=== PATIENT | female | born 1940 ===

== ENCOUNTER → 2020-08-29 | Outpatient (CLI) | payer MEDICARE ==
[~2020-08-29] MED LIST: LIDOCAINE 1% Multi-Dose 20 ML VIAL. INJ ONE; LIDOCAINE 1% Multi-Dose 20 ML VIAL. ONE
--- NOTE | 2020-08-29 14:37 | RAD ---
EXAM: Sonographic guided left thyroid fine needle aspiration. HISTORY: Thyroid nodule. TECHNIQUE: The risks of the procedure were discussed with the patient and written and verbal consent was obtained. A timeout was performed. Sonographic imaging of the left thyroid lobe was performed on the nodule of concern measuring 2.2 cm was identified. The skin in this location was sterilely preppe d, draped and infiltrated with 1 percent lidocaine. Multiple passes were made through the nodule conc elina using 25-gauge needles and the aspirate was submitted to the department of pathology for analysis . A sterile measures placed at the needle entry site. The patient tolerated the procedure without dif ficulty. IMPRESSION: Sonographic guided fine-needle aspiration of a 2.2 cm left thyroid nodule. An addendum to this report be submitted when pathology results are available. Electronically signed by: Rhea Samuel MD (08/29/2020 2:34 PM) [id number]
--- NOTE | 2020-08-31 13:33 | PATHOLOGY ---
Note [facility] Accession Number: [id number] TESTS RESULT FLAG UNITS REF RANGE LAB Clinician Provided Cytology Information No. of containers..01 Other (Miscellaneous) Source: LEFT THYROID NODULE DIAGNOSIS: LEFT THYROID NODULE NEGATIVE FOR MALIGNANT CELLS. BETHESDA CATEGORY II. BENIGN. CLUSTERS OF FOLLICULAR EPITHELIAL CELLS, HEMOSIDERIN-LADEN MACROPHAGES, AND RED BLOOD CELLS IDENTIFIED. THE FINDINGS ARE CONSISTENT WITH A BENIGN FOLLICULAR NODULE. THIS INTERPRETATION INCLUDES EVALUATION OF A CELL BLOCK. Signed out by: 02 Robert Mitchell MD, Pathologist NPI- [id number] Performed by: Gail Vance, Foundry Engineer ([facility]) Gross description: 30ML, CLR LGT PINK, 2FX 2A 2HE /LCS 08/30/[address] [place] [address] FLAG LEGEND: L-Low Normal,H-High Normal,LL-Alert Low,HH-Alert High <-Panic Low,>-Panic High,A-Abnormal,AA-Critical Abnormal Performed at: [facility] [address] [place] [address] Dyllan Dash MD, 02 [facility] [address] [place] [address] Robert Mitchell MD, Specimen Comment: A courtesy copy of this report has been sent to [phone] Specimen Comment: Report sent to Dr.OBERHELMA Specimen Comment: A duplicate report has been generated due to demographic updates. Performed at: 01 [facility] [address], [place], [place] [id number] MD Dyllan Dash MD Phone: [phone]
--- NOTE | 2020-09-01 06:03 | CONS ---
DATE OF CONSULTATION: 08/31/2020 NEUROLOGY CONSULTATION REFERRING PHYSICIAN: Dr. Lewis. REASON FOR CONSULTATION: Syncope versus seizure. HISTORY OF PRESENT ILLNESS: This is an 79-year-old right-handed female who was admitted through emergency room on 08/29/2020 after she presented with a chief complaint of generalized weakness and dizziness along with a decreased appetite. These symptoms have been present since 05/2019 after her . Subsequently, the patient started losing weight and she reported a 40-pound weight loss since his . The patient stated symptoms have been worsened in the last 10 days and she became dehydrated and not able to eat and she related that to depression. The patient stated 2 days ago she tried to work in her garden and mainly adjusting the bird feeder. Subsequently, she fell backward and apparently she lost her consciousness for uncertain time. When she woke up, the patient was not confused or disoriented. She denies any preceding symptoms prior to the fall as chest pain, shortness of breath or palpitation, but she was somewhat dizzy. Dizziness has been reported worse when she changes her body positions from lying to sitting or from sitting to standing. The patient did not have any bowel or bladder incontinence nor did she have tongue biting or severe head injuries. In the emergency room, the patient was alert and oriented. Initial nonenhanced head CT scan revealed no acute intracranial process. Currently, the patient complains of severe lower back pain for which she has been receiving multiple narcotics and analgesics. She related her lower back pain to degenerative disk disease. The patient stated her symptoms have improved; however, she was given hydrocodone and fentanyl prior to this evaluation. PAST MEDICAL HISTORY: Significant for thyroid mass on the left side required a biopsy performed 3 days ago, but the result is still pending, chronic lower back pain secondary to degenerative disk disease, hypothyroidism, osteoarthritis, hypertension and hyperlipidemia. PAST SURGICAL HISTORY: Positive for abdominal hysterectomy, cholecystectomy, right rotator cuff repair, and right carpal tunnel release. FAMILY HISTORY: Significant for coronary artery disease. She lost her father from a myocardial infarction. Her father at the age of 47 secondary to myocardial infarction, positive history of diabetes mellitus. SOCIAL HISTORY: The patient is . Her at age of 59 due to advanced pancreatic cancer. She quit smoking years ago. She denies alcohol drinking or illicit drug use. CURRENT HOME MEDICATIONS: Include Lipitor, carvedilol, hydrocodone/acetaminophen, escitalopram, furosemide and potassium, Protonix, levothyroxine and multivitamins. ALLERGIES: ASPIRIN. REVIEW OF SYSTEMS: A 12-point review of system was performed as mentioned above, history of present illness, otherwise unremarkable. PHYSICAL EXAMINATION: GENERAL: Obese female in no acute distress. She weighs 100.7 kilos. VITAL SIGNS: Blood pressure 126/70, respiratory rate 18, pulse 65, oxygen saturation is 96% on room air and temperature is 98.4. HEENT: Normocephalic, atraumatic, otherwise unremarkable. NECK: Supple, negative for carotid bruit, lymphadenopathy or thyromegaly. LUNGS: Clear to A&P. CARDIOVASCULAR: Regular rate and rhythm, normal S1, S2. There is no S3, S4 or murmur. ABDOMEN: Soft. Bowel sounds positive. EXTREMITIES: Negative for cyanosis, clubbing or pedal edema. NEUROLOGIC: Mental status: The patient is alert and oriented x 3. Speech is fluent. There is no language dysfunction. Memory, judgment and abstracting thinking are normal. The patient denies hallucination or delusion. Cranial nerves: Visual ribeiro are full. The pupils are reactive to light and accommodation. Extraocular movements are intact. There is no nystagmus. There is no facial motor or sensory deficits. Hearing is intact bilaterally. The palate is elevated symmetrically. Sternocleidomastoid muscles are powerful bilaterally. The patient shrugs her shoulders symmetrically protrudes her tongue in the midline without fasciculation or atrophy. Motor: No focal muscle bulk wasting. The tone is normal. The strength is 4/5 throughout. Sensory examination revealed normal pinprick and light touch senses throughout. Deep tendon reflexes were asymmetric and hypoactive with absent Achilles responses. Gait, the stance is steady. The patient walks few steps without assistance. IMAGING: A head CT scan without contrast as described in the history of present illness, otherwise unremarkable. Chest x-ray revealed no acute cardiopulmonary process. LABORATORY DATA: CBC revealed blood cells of 11,100, hemoglobin 13.8, hematocrit 41.5, platelet count 273,000. Chemistry revealed a sodium of 141, potassium 4.5, chloride 104, CO2 32, BUN 14, creatinine 0.9, glucose 106, calcium 9.2, total bilirubin is high at 1.9. Troponin level is normal. Urinalysis negative for urinary tract infection with a small urinary leukocyte esterase. ASSESSMENT: 1. Syncopal episode and less likely a seizure. Dehydration may have contributed to the syncopal episode versus orthostatic hypotension. 2. Multiple medical problems include hypertension, hyperlipidemia, osteoarthritis and recurrent benign paroxysmal positional vertigo. RECOMMENDATIONS: 1. Continue with current management initiated by Dr. Lewis. 2. Careful hydration. 3. The patient should follow up in neurology clinic to perform EMG/NCS of the lower extremities to rule out entrapment neuropathy versus lumbosacral radiculopathy. 4. If the patient continues to have vertigo, vestibular exercise may alleviate the symptoms, PT/OT evaluation and treatment. JEFFERSON/GUNNER/YESIKA DR: Jack TID: [id number]
== END | disposition home or self-care (01) ==
LOC: US 14:50
PROVIDERS: ATTEND Otolaryngology
DX: E04.1 Nontoxic single thyroid nodule (principal)
CPT/HCPCS: 10005; 76942; 88173; 88305